=== PATIENT | male | born 1955 | race Caucasian/White ===

== ENCOUNTER 2024-02-07 10:17 | Emergency (ER) | payer OTHER, MEDICARE ==
[~2024-02-07] VITALS: Ht 165.1 cm; Wt 69.0 kg
[2024-02-07] VITALS (7 sets, daily range): BP systolic 101–118; BP diastolic 52–71
[2024-02-07] MEDS ORDERED: KETOROLAC TROMETHAMINE 30 MG/ML SDV IM ONE (11:05)
[2024-02-07] MEDS ORDERED: TRAMADOL HYDROC50 M1 PO (12:05)
[2024-02-07] MEDS ORDERED: NAPROXEN500 MG PO (12:05)
== END 2024-02-07 12:25 | disposition home or self-care (01) | DRG 556 ==
LOC: ED 10:17
DX: M25.562 Pain in left knee (principal)